=== PATIENT | male | born 2000 | race Caucasian/White ===

== ENCOUNTER 2024-09-01 02:20 | Inpatient (IN) | payer MEDICAID ==
[~2024-09-01] VITALS: Ht 167.6 cm; Wt 49.0 kg
[2024-09-01 02:58] LABS: COVID AG,FIA SOURCE NASAL SWAB
[2024-09-01 03:04] LABS: PLATELET COUNT (AUTO) 315 K/uL (150-450); RED BLOOD CELL COUNT(AUTO) 5.23 MIL/uL (4.50-5.90); RED CELL DISTRIBUTION WIDTH 13.0 % (11.5-14.5); WHITE BLOOD COUNT (AUTO) 5.7 K/uL (4.5-11.0)
[2024-09-01 03:25] LABS: CALCIUM, TOTAL 8.9 mg/dL (8.8-10.5); CREATININE 1.09 mg/dL (0.60-1.30); GLOMERULAR FILTR. RATE CALC > 60 mL/min (>60); GLUCOSE,RANDOM 101 mg/dL (70-110); SODIUM SERUM 145 mmol/L (136-145); UREA NITROGEN, BLOOD 11 mg/dL (7-18)
[2024-09-01 03:28] LABS: SARS-COV2 (COVID) ANTIGEN,FIA Negative (Negative)
[2024-09-01 10:55] LABS: APPEARANCE,URINE CLEAR (CLEAR); GLUCOSE, URINE (UA) NEGATIVE (NEGATIVE); LEUKOCYTE ESTERASE ,URINE NEGATIVE (NEGATIVE); NITRATE,URINE NEGATIVE (NEGATIVE); OCCULT BLOOD,URINE NEGATIVE (NEGATIVE); PH,URINE DRUG SCREEN 6.0 (5.0-8.0); SPECIFIC GRAVITIY, URINE 1.020 (1.003-1.030)
[2024-09-01 11:02] LABS: ALCOHOL, URINE DRUG SCREEN POSITIVE (NEGATIVE); AMPHET/METH SCREEN,URINE NEGATIVE (NEGATIVE); BARBITURATE SCREEN, URINE NEGATIVE (NEGATIVE); CANNABINOID SCREEN,URINE POSITIVE (NEGATIVE); COCAINE SCREEN,URINE NEGATIVE (NEGATIVE); METHADONE SCREEN, URINE NEGATIVE (NEGATIVE)
[2024-09-01 17:25] VITALS: O2SAT 100
[2024-09-01 18:10] VITALS: BP 124/92; PULSE 72; RESP 18; TEMP 98.2; O2SAT 99
[2024-09-01 20:23] VITALS: BP 101/68; PULSE 81; RESP 18; TEMP 97.5; O2SAT 97
[2024-09-02 07:40] LABS: PLATELET COUNT (AUTO) 300 K/uL (150-450); RED BLOOD CELL COUNT(AUTO) 5.29 MIL/uL (4.50-5.90); RED CELL DISTRIBUTION WIDTH 13.3 % (11.5-14.5); WHITE BLOOD COUNT (AUTO) 8.8 K/uL (4.5-11.0)
[2024-09-02 08:01] LABS: ASPARTATE AMINOTRANSFERASE 32 U/L (15-37); CALCIUM, TOTAL 9.6 mg/dL (8.8-10.5); CHOL/HDL RATIO 1.7 (4.2-7.3); CREATININE 1.14 mg/dL (0.60-1.30); GLOMERULAR FILTR. RATE CALC > 60 mL/min (>60); GLUCOSE,RANDOM 81 mg/dL (70-110); LDL CHOL (CALC.) 45 mg/dL (0-130); SODIUM SERUM 140 mmol/L (136-145); TOTAL PROTEIN, SERUM 7.8 g/dL (6.4-8.2); UREA NITROGEN, BLOOD 20 mg/dL (7-18)
[2024-09-02 08:12] VITALS: BP 134/80; PULSE 74; RESP 17; TEMP 97.6; O2SAT 100
[2024-09-02] MEDS ORDERED: DOCUSATE SODIUM 100 MG CAPSULE PO PRN (09:00)
[2024-09-02] MEDS ORDERED: IBUPROFEN 600 MG TABLET PO PRN (09:00)
[2024-09-02] MEDS ORDERED: ACETAMINOPHEN 325 MG TABLET PO PRN (09:00)
[2024-09-02] MEDS ORDERED: NICOTINE POLACRILEX 4 MG LOZENGE PO PRN (09:00)
[2024-09-02] MEDS ORDERED: OMEPRAZOLE 20 MG CAPSULE PO PRN (09:00)
[2024-09-02] MEDS ORDERED: BACITRACIN 28 GM OINTMENT TP PRN (09:00)
[2024-09-02] MEDS ORDERED: BENZOCAINE/MENTHOL [CEPACOL] LOZENGE PO PRN (09:00)
[2024-09-02] MEDS ORDERED: ALBUTEROL SULFATE HFA 90 MCG/PUFF 8 GM INHALER IH PRN (09:00)
[2024-09-02] MEDS ORDERED: MAGNESIUM HYDROXIDE SUSPENSION 30 ML UDCUP PO PRN (09:00)
[2024-09-02] MEDS ORDERED: MAG HYDROX/ALUMINUM HYD/SIMETH ES 30 ML SUSPENSION UDCUP PO PRN (09:00)
[2024-09-02] MEDS ORDERED: LOPERAMIDE HCL 2 MG CAPSULE PO PRN (09:00)
[2024-09-02] MEDS ORDERED: ONDANSETRON 4 MG TABLET PO PRN (09:00)
[2024-09-02] MEDS ORDERED: PETROLATUM,WHITE 28 GM JELLY TP PRN (09:00)
[2024-09-02 20:41] VITALS: RESP 18
[2024-09-03] MEDS: ZOLPIDEM TARTRATE 10 MG TABLET PO PRN (00:32)
[2024-09-03 09:09] VITALS: BP 121/97; PULSE 75; RESP 17; TEMP 98.4; O2SAT 99
[2024-09-03 20:24] VITALS: BP 120/79; PULSE 86; RESP 18; TEMP 97.7; O2SAT 99
[2024-09-04 01:07] LABS: HEPATITIS C AB (EIA) Non Reactive (Non Reactive)
[2024-09-04 09:24] VITALS: BP 123/83; PULSE 98; RESP 19; TEMP 97.8; O2SAT 98
== END 2024-09-04 18:20 | disposition home or self-care (01) | DRG 751 ==
LOC: EMS 02:24 → B2S 15:58
PROVIDERS: ADMIT Psychiatry & Neurology Psychiatry; ATTEND Psychiatry & Neurology Psychiatry
PROC: GZHZZZZ Group Psychotherapy (ICD-10-PCS; principal; 2024-09-02)
PROC: GZ51ZZZ Individual Psychotherapy, Behavioral (ICD-10-PCS; 2024-09-02)
DX: F29 Unspecified psychosis not due to a substance or known physiological condition (principal); R45.851 Suicidal ideations; F10.129 Alcohol abuse with intoxication, unspecified; Z20.822 Contact with and (suspected) exposure to COVID-19; F41.9 Anxiety disorder, unspecified; G47.00 Insomnia, unspecified; K59.00 Constipation, unspecified; F12.10 Cannabis abuse, uncomplicated; Y90.6 Blood alcohol level of 120-199 mg/100 ml
CPT/HCPCS: 80048; 80053; 80061; 80307; 81003; 83036; 84436; 84443; 85025; 86803; 87340; 99285; G0480

== ENCOUNTER 2024-09-17 17:57 | Inpatient (IN) | payer MEDICAID ==
[~2024-09-17] VITALS: Ht 167.6 cm; Wt 52.2 kg
[2024-09-17 18:58] VITALS: O2SAT 98
[2024-09-17 19:18] LABS: COVID AG,FIA SOURCE NASAL SWAB
[2024-09-17 19:19] LABS: PLATELET COUNT (AUTO) 309 K/uL (150-450); RED BLOOD CELL COUNT(AUTO) 4.96 MIL/uL (4.50-5.90); RED CELL DISTRIBUTION WIDTH 12.9 % (11.5-14.5); WHITE BLOOD COUNT (AUTO) 7.5 K/uL (4.5-11.0)
[2024-09-17 19:21] LABS: PH,URINE DRUG SCREEN 6.5 (5.0-8.0)
[2024-09-17 19:28] LABS: CALCIUM, TOTAL 8.7 mg/dL (8.8-10.5); CREATININE 1.14 mg/dL (0.60-1.30); GLOMERULAR FILTR. RATE CALC > 60 mL/min (>60); GLUCOSE,RANDOM 91 mg/dL (70-110); SODIUM SERUM 141 mmol/L (136-145); UREA NITROGEN, BLOOD 13 mg/dL (7-18)
[2024-09-17 19:29] LABS: ALCOHOL, URINE DRUG SCREEN NEGATIVE (NEGATIVE); AMPHET/METH SCREEN,URINE NEGATIVE (NEGATIVE); BARBITURATE SCREEN, URINE NEGATIVE (NEGATIVE); CANNABINOID SCREEN,URINE POSITIVE (NEGATIVE); COCAINE SCREEN,URINE NEGATIVE (NEGATIVE); METHADONE SCREEN, URINE NEGATIVE (NEGATIVE)
[2024-09-17 19:37] LABS: SARS-COV2 (COVID) ANTIGEN,FIA Negative (Negative)
[2024-09-18 00:58] VITALS: BP 121/82; PULSE 84; RESP 18; TEMP 98.4; O2SAT 100
[2024-09-18] MEDS ORDERED: LOPERAMIDE HCL 2 MG CAPSULE PO PRN (08:00)
[2024-09-18] MEDS ORDERED: DOCUSATE SODIUM 100 MG CAPSULE PO PRN (08:00)
[2024-09-18] MEDS ORDERED: MAGNESIUM HYDROXIDE SUSPENSION 30 ML UDCUP PO PRN (08:00)
[2024-09-18] MEDS ORDERED: ACETAMINOPHEN 325 MG TABLET PO PRN (08:00)
[2024-09-18] MEDS ORDERED: ALBUTEROL SULFATE HFA 90 MCG/PUFF 8 GM INHALER IH PRN (08:00)
[2024-09-18] MEDS ORDERED: GuaiFENesin/D-METHORPHAN [SUGAR-FREE] 200-20MG/10 ML SYRUP UDCUP PO PRN (08:00)
[2024-09-18] MEDS ORDERED: IBUPROFEN 400 MG TABLET PO PRN (08:00)
[2024-09-18] MEDS ORDERED: PETROLATUM,WHITE 28 GM JELLY TP PRN (08:00)
[2024-09-18] MEDS ORDERED: MAG HYDROX/ALUMINUM HYD/SIMETH ES 30 ML SUSPENSION UDCUP PO PRN (08:00)
[2024-09-18] MEDS ORDERED: ONDANSETRON 4 MG TABLET PO PRN (08:00)
[2024-09-18] MEDS ORDERED: NICOTINE 14 MG/24 HOUR PATCH TD PRN (08:00)
[2024-09-18 08:18] VITALS: BP 123/87; PULSE 85; RESP 18; TEMP 96.8; O2SAT 98
[2024-09-18 20:17] VITALS: BP 137/90; PULSE 96; RESP 18; TEMP 97.5; O2SAT 98
[2024-09-19 08:16] VITALS: BP 130/89; PULSE 76; RESP 17; TEMP 97.3; O2SAT 96
[2024-09-19] MEDS: ZOLPIDEM TARTRATE 10 MG TABLET PO PRN (20:39)
[2024-09-19 22:07] VITALS: BP 138/87; PULSE 61; RESP 16; TEMP 98.4; O2SAT 100
[2024-09-20 08:15] VITALS: BP 138/91; PULSE 83; RESP 18; TEMP 95.6; O2SAT 98
[2024-09-21] MEDS ORDERED: RISP-31 PO (01:02)
== END 2024-09-20 17:59 | disposition home or self-care (01) | DRG 750 ==
LOC: EMS 17:57 → B2S 09-18 00:12
PROVIDERS: ADMIT Psychiatry & Neurology Child & Adolescent Psychiatry; ATTEND Psychiatry & Neurology Psychiatry
PROC: GZHZZZZ Group Psychotherapy (ICD-10-PCS; principal; 2024-09-18)
PROC: GZ58ZZZ Individual Psychotherapy, Cognitive-Behavioral (ICD-10-PCS; 2024-09-18)
PROC: GZ56ZZZ Individual Psychotherapy, Supportive (ICD-10-PCS; 2024-09-18)
DX: F25.0 Schizoaffective disorder, bipolar type (principal); F10.10 Alcohol abuse, uncomplicated; F12.10 Cannabis abuse, uncomplicated; G47.00 Insomnia, unspecified; I10 Essential (primary) hypertension; F41.9 Anxiety disorder, unspecified; Y90.9 Presence of alcohol in blood, level not specified; Z79.899 Other long term (current) drug therapy
CPT/HCPCS: 80048; 80307; 85025; 87081; G0480